=== PATIENT | male | born 1965 | race Caucasian/White ===

== ENCOUNTER 2016-10-31 02:22 | Inpatient (IN) | payer OTHER ==
--- NOTE | ~2016-10-31 | PN ---
Unit #: [id number] #: [id number] Patient: KEVYN SOLOMON [id number] [facility] [address] [place] [address] [id number] MR#: [id number] NAME: KEVYN SOLOMON ROOM: P210 Age: 51 Sex: M Admission Date: 10/31/2016 : 1965 Attending Physician: Eyal Cerda M.D. Admitting Physician: Eyal Cerda M.D. Primary Care Physician: Primary Care Physician Lety AQUINO NOTES DATE 11/03/2016 DISCUSSION The patient voices no new complaints today. He is a bit brighter and more active within the therapeutic milieu. He is now expressing interest in residential chemical dependence treatment. Dictated by... Eyal Cerda M.D. CB/rosalinda TD: 11/04/2016 01:05 JOB #: [id number] SAVANNAH AQUINO NOTES X Eyal Cerda MD X PROGRESS NOTE
--- NOTE | ~2016-10-31 | HP ---
Unit #: [id number] #: [id number] Patient: KEVYN SOLOMON [id number] [place] [address] [id number] MR#: [id number] NAME: KEVYN SOLOMON ROOM: P210 Age: 51 Sex: M Admission Date: 10/31/2016 : 1965 Attending Physician: Eyal Cerda M.D. Admitting Physician: Eyal Cerda M.D. Primary Care Physician: Primary Care Physician No HISTORY AND PHYSICAL HISTORY OF PRESENT ILLNESS Kevyn is a 51 year old admitted to [address] [place] [address] with depression and verbalizing wanting to hurt himself. PAST MEDICAL HISTORY 1. Coronary artery disease. a. History of NC. b. Angioplasty with stent placement. 2. History of MRSA. PAST SURGICAL HISTORY I and D of an abscess along his finger, positive for MRSA. ALLERGIES No known drug allergies. SOCIAL HISTORY Smokes 1 pack per day. Drinks alcohol on occasion. Denies illicit drug use. FAMILY HISTORY Medically noncontributory. REVIEW OF SYSTEMS CONSTITUTIONAL: No fever or chills. HEENT: Denies any sore throat, ear pain or runny nose. CARDIOVASCULAR: Denies chest pain, irregular heart rhythm or palpitations. CHEST: Denies shortness of breath or cough. No hemoptysis. GASTROINTESTINAL: Denies nausea, vomiting, diarrhea or chronic constipation. ENDOCRINE: Denies history of increased thirst or urination. No recent significant weight loss or gain. GENITOURINARY: Denies dysuria, frequency, or hematuria. SKIN: Denies any rashes. HEMATOLOGIC: Denies history of increased bleeding or bruising. MUSCULOSKELETAL: Denies any hot, swollen joints. No generalized muscle pain. NEUROLOGIC: Denies problems with vision or speech. No frequent, severe headaches. No numbness, tingling or weakness in any extremities. Denies loss of bladder or bowel control. CURRENT MEDICATIONS 1. Zyvox 600 mg b.i.d. 2. Nicotine patch 14 mg daily. Unit #: [id number] #: [id number] Patient: KEVYN SOLOMON 3. Milk of Magnesia p.r.n. 4. Maalox p.r.n. 5. Tylenol p.r.n. PHYSICAL EXAMINATION GENERAL: Alert, well-nourished, in no apparent distress. VITAL SIGNS: Blood pressure 118/78, heart rate 76, respirations 16, temperature 98.6. WEIGHT: 126. HEIGHT: 5 feet 5 inches. SKIN: Warm and dry without rash or lesion. He does have a healing surgical scar along the middle finger. There are small scabs still present. HEENT: Normocephalic. TMs not viewed. Oral and nasal passages clear. Conjunctivae clear. PERRLA. EOMs intact. NECK: Supple without lymphadenopathy or thyromegaly. HEART: Regular rate and rhythm without murmur. LUNGS: Clear. ABDOMEN: Soft, nontender. : Not done. EXTREMITIES: No evidence of cyanosis, clubbing or edema. Moves all without focal deficit. NEUROLOGICAL: Grossly within normal limits. Cranial Nerves: II: Visual urrutia are intact. III, IV AND : Extraocular movements are intact. Pupils are equal, round and reactive to light. V: Facial sensation is grossly normal. VII: Facial movements and expression are normal. VIII: Auditory acuity grossly intact. IX, X: Uvula is midline. Phonation is normal. XI: Patient shrugs shoulders and turns head normally. XII: Tongue protrudes in the midline. Sensory and Motor Function: Sensory and motor sensation is grossly normal. Motor: moves all extremities well. Coordination: Gait is normal. Deep Tendon Reflexes: Intact. IMPRESSION 1. Psychiatric admission. 2. History of MRSA, finger. Recent I and D, place is healing well. RECOMMENDATIONS PSYCHIATRIC: Per psychiatrist. MEDICAL: 1. See no contraindications to participate in facility's activities. 2. Continue Zyvox 600 mg b.i.d. Dictated by... Ermelinda Noriega P.A.-C. for Charbel Markham/bev TD: 10/31/2016 21:37 JOB #: [id number] Unit #: [id number] #: [id number] Patient: KEVYN SOLOMON HISTORY AND PHYSICAL X Ermelinda Noriega HISTORY AND PHYSICAL
--- NOTE | ~2016-10-31 | PN ---
Unit #: [id number] #: [id number] Patient: KEVYN SOLOMON [id number] [facility] [address] [place] [address] [id number] I MR#: [id number] NAME: KEVYN SOLOMON ROOM: P210 Age: 51 Sex: M Admission Date: 10/31/2016 : 1965 Attending Physician: Eyal Cerda M.D. Admitting Physician: Eyal Cerda M.D. Primary Care Physician: Primary Care Physician Lety AQUINO NOTES DATE 11/01/2016 DISCUSSION This physician is able to arouse the patient this morning. Patient does complain of recent depressed mood and suicidal ideation stating that he is "done with his life" secondary to his homeless status, lack of ability to maintain employment, etc. He does minimize his alcohol use at this time and exhibits little in the way of signs or symptoms of withdrawal. Suicide precautions remain in place and I will begin a trial of citalopram 20 mg daily to address the patient's depressive symptoms. His expectations of inpatient care are today gently redirected. Dictated by... Eyal Cerda M.D. CB/bev TD: 11/01/2016 14:53 JOB #: [id number] SAVANNAH AQUINO NOTES X Eyal Cerda MD PROGRESS NOTE
--- NOTE | ~2016-10-31 | PN ---
Unit #: [id number] #: [id number] Patient: KEVYN SOLOMON [id number] [facility] [address] [place] [address] [id number] I MR#: [id number] NAME: KEVYN SOLOMON ROOM: P210 Age: 51 Sex: M Admission Date: 10/31/2016 : 1965 Attending Physician: Eyal Cerda M.D. Admitting Physician: Eyal Cerda M.D. Primary Care Physician: Primary Care Physician Lety NUÑEZ PROGRESS NOTES DATE 11/05/2016 DISCUSSION The patient is a bit brighter today. He is planning to go to [facility] on Thursday this . Discharge will take place tomorrow to facilitate that transfer. Dictated by... Eyal Cerda M.D. CB/bzg TD: 11/05/2016 14:06 JOB #: [id number] SAVANNAH PROGRESS NOTES X Eyal Cerda MD PROGRESS NOTE
--- NOTE | ~2016-10-31 | PA ---
Unit #: [id number] #: [id number] Patient: KEVYN SOLOMON [id number] [facility] [address] [place] [address] [id number] I MR#: [id number] NAME: KEVYN SOLOMON ROOM: P210 Age: 51 Sex: M Admission Date: 10/31/2016 : 1965 Date of Assessment: 10/31/2016 Attending Physician: Eyal Cerda M.D. Admitting Physician: Eyal Cerda M.D. Primary Care Physician: Primary Care Physician No PSYCHIATRIC ASSESSMENT IDENTIFYING INFORMATION The patient is a 51-year-old single white male admitted to the [facility] unit after presenting to [facility] in [place] complaining of suicidal ideation. INFORMANT(S) Chart, patient could not be aroused for interview. CHIEF COMPLAINT None given. HISTORY OF PRESENT ILLNESS The patient is a 51-year-old unmarried homeless white male admitted to the [address] [place] [address] unit complaining of depressed mood and suicidal ideation with plan to crash his automobile. The patient reports that his homelessness and unemployment are his major stressors. The patient reportedly recently quit a job for "no good reason." He was reporting positive suicidal ideation at the time of admission with plan to crash his automobile. He does have a history of several DUI's but reports that his alcohol use has been curtailed recently with him drinking "2 to 3 beers several times a week." When seen today, the patient is sleeping soundly and cannot be aroused for interview. PAST PSYCHIATRIC HISTORY Cannot be obtained. FAMILY HISTORY Not obtained. SOCIAL HISTORY The patient is presently unemployed and homeless. MEDICAL HISTORY The patient has a broken finger that has been complicated by MRSA infection. MEDICATION HISTORY Linezolid. ALLERGIES None. SUBSTANCE ABUSE HISTORY Unit #: [id number] #: [id number] Patient: KEVYN SOLOMON As noted previously. MENTAL STATUS EXAM At this time, reveals the patient to be a soundly sleeping white male who cannot be aroused for further interview. ASSETS AND LIABILITIES Patient's assets to be assessed. Liabilities, lack of resources, homelessness. ADMITTING DIAGNOSES Dysthymic disorder. PSYCHIATRIC PLAN/TREATMENT GOALS The patient remains hospitalized for safety and stabilization. We will watch for any signs of alcohol withdrawal and suicide precautions are in place. Antibiotic therapy will be continued. When the patient can be better evaluated, we will consider initiation of antidepressant medication and will speak to the patient regarding possible nursing home referral. ESTIMATED LENGTH OF STAY Three to five days. Dictated by... Eyla Cerda M.D. COLE/bev TD: 10/31/2016 16:21 JOB #: [id number] PSYCHIATRIC ASSESSMENT X Eyal Cerda MD X PSYCHIATRIC ASSESSMENT
--- NOTE | ~2016-10-31 | PN ---
Unit #: [id number] #: [id number] Patient: KEVYN SOLOMON [id number] [facility] [address] [place] [address] [id number] I MR#: [id number] NAME: KEVYN SOLOMON ROOM: P210 Age: 51 Sex: M Admission Date: 10/31/2016 : 1965 Attending Physician: Eyal Cerda M.D. Admitting Physician: Eyal Cerda M.D. Primary Care Physician: Primary Care Physician Lety NUÑEZ PROGRESS NOTES DATE 11/04/2016 DISCUSSION The patient is brighter with each day and is more active within the therapeutic milieu. He is reporting reduction in suicidal ideation. I have spoken with him regarding potential residential chemical dependence treatment and expect discharge to take place in the next couple of days. Dictated by... Eyal Cerda M.D. CB/bev TD: 11/04/2016 15:18 JOB #: [id number] SAVANNAH PROGRESS NOTES X Eyal Cerda MD PROGRESS NOTE
--- NOTE | ~2016-10-31 | PN ---
Unit #: [id number] #: [id number] Patient: KEVYN SOLOMON [id number] [facility] [address] [place] [address] [id number] I MR#: [id number] NAME: KEVYN SOLOMON ROOM: P210 Age: 51 Sex: M Admission Date: 10/31/2016 : 1965 Attending Physician: Eyal Cerda M.D. Admitting Physician: Eyal Cerda M.D. Primary Care Physician: Primary Care Physician Lety NUÑEZ PROGRESS NOTES DATE 11/01/2016 DISCUSSION The patient is regarding his failure to attend an on-unit therapeutic activity. He continues to report positive suicidal ideation and hopelessness. Dictated by... Eyal Cerda M.D. CB/tanna TD: 11/02/2016 15:20 JOB #: [id number] SAVANNAH PROGRESS NOTES X Eyal Cerda MD PROGRESS NOTE
[2016-10-31 09:51] LABS: THYROID STIMULATING HORMONE 0.78 uIU/ml (0.34-5.60)
[2016-10-31 09:58] LABS: FREE THYROXIN (T4) 0.66 ng/dL (0.58-1.64)
[2016-10-31 12:44] LABS: URINE APPEARANCE CLEAR; URINE BILIRUBIN NEG (NEG); URINE BLOOD NEG (NEG); URINE COLOR YELLOW; URINE GLUCOSE NEG (NEG); URINE KETONE NEG (NEG); URINE LEUKOCYTE ESTERASE NEG (NEG); URINE NITRATE NEG (NEG); URINE PH 5.5 (5-8); URINE PROTEIN NEG (NEG); URINE SPECIFIC GRAVITY 1.023 (1.003-1.035); URINE UROBILINOGEN 0.2 MG/DL (NEG)
== END 2016-11-06 16:16 | disposition home or self-care (01) | DRG 881 ==
LOC: P2S 02:22 → POF 11-03 14:04 → P2S 11-03 14:08
PROVIDERS: Specialist
DX: F34.1 Dysthymic disorder (principal); R45.851 Suicidal ideations; Z59.0 Homelessness; I25.10 Atherosclerotic heart disease of native coronary artery without angina pectoris; Z95.5 Presence of coronary angioplasty implant and graft; F17.200 Nicotine dependence, unspecified, uncomplicated; Z86.14 Personal history of Methicillin resistant Staphylococcus aureus infection; I25.2 Old myocardial infarction
CPT/HCPCS: 81003; 84439; 84443